=== PATIENT | male | born 1975 | race Caucasian/White ===

== ENCOUNTER 2016-12-26 18:01 | Observation (INO) | payer OTHER ==
[~2016-12-26] VITALS: Ht 170.2 cm; Wt 68.0 kg
[~2016-12-26 18:01] MED LIST: BUPR1FIL5 PO
[2016-12-26 18:49] LABS: ASPARTATE AMINO TRANSFERASE 28 U/L (15-37); BLOOD UREA NITROGEN 21 mg/dL (7-18)
[2016-12-26 18:51] LABS: ACETAMINOPHEN 8 mcg/mL (10-30)
[2016-12-26 20:49] LABS: DAU SCREEN DISCLAIMER
[2016-12-27] MEDS ORDERED: LORazepam 1MG TABLET PO ONE (01:00)
[2016-12-27] MEDS ORDERED: NICOTINE 21 MG/24 HR PATCH.TD24 TD ONE (01:00)
[2016-12-27] MEDS ORDERED: LORazepam 1MG TABLET ONE (01:40)
[2016-12-27] MEDS ORDERED: NICOTINE 21 MG/24 HR PATCH.TD24 ONE (01:40)
[2016-12-27] MEDS ORDERED: ONDANSETRON ODT 4 MG PO PRN (10:00)
[2016-12-27] MEDS ORDERED: TEMAZEPAM 15 MG CAPSULE PO PRN (10:00)
[2016-12-27] MEDS ORDERED: NICOTINE 21 MG/24 HR PATCH.TD24 TD SCH (10:00)
[2016-12-27] MEDS ORDERED: POLYETHYLENE GLYCOL 17 GM PACKET PO PRN (10:00)
[2016-12-27] MEDS ORDERED: HALOPERIDOL 5 MG TABLET PO PRN (10:00)
[2016-12-27] MEDS ORDERED: LORazepam 1MG TABLET PO PRN (10:00)
[2016-12-27] MEDS ORDERED: FLUO20CA19 PO (11:29)
[2016-12-27 11:30] VITALS: BP 130/81
[2016-12-27] MEDS: ACETAMINOPHEN 325 MG TABLET PO PRN (15:01)
[2016-12-27 19:36] VITALS: BP 142/92
[2016-12-28] MEDS: ACETAMINOPHEN 325 MG TABLET PO PRN (05:32)
[2016-12-28 06:04] LABS: BLOOD UREA NITROGEN 15 mg/dL (7-18)
[2016-12-28 07:44] VITALS: BP 114/74
[2016-12-28] MEDS ORDERED: BUPRENORPHINE/NALOXONE 8-2MG SL SCH (09:00)
== END 2016-12-28 08:56 ==
LOC: ED 18:43 → EDIP 12-27 07:09 → 3E 12-27 11:12
PROVIDERS: ATTEND Internal Medicine
DX: R45.851 Suicidal ideations (principal); F32.9 Major depressive disorder, single episode, unspecified; F17.210 Nicotine dependence, cigarettes, uncomplicated
CPT/HCPCS: 36415; 71010; 80048; 80053; 80307; 80329; 81003; 85025; 99285; G0378; G0480

== ENCOUNTER 2019-11-23 08:11 | Emergency (ER) | payer OTHER ==
[~2019-11-23] VITALS: Ht 175.3 cm; Wt 90.1 kg
[~2019-11-23 08:11] MED LIST changes: +FLUO20CA19 PO
--- NOTE | 2019-11-23 08:42 | NUR ---
PT STATES HE RECENTLY DRANK AND IS HAVING WITHDRAWAL SYMPTOMS. FATHER RECENTLY AND IS HAVING A HARD TIME COPING.
[2019-11-23 10:10] VITALS: BP 135/75
--- NOTE | 2019-11-23 10:11 | NUR ---
PT RESTING. STATED HE HAD A COUPLE SHOTS BEFORE COMING IN TO ED, LAST DRINK PRIOR WAS 4 DAYS AGO. VSS. LAB AT BEDSIDE
[2019-11-23 10:20] LABS: BASOPHILS # (AUTO) 0.04 x10^3/uL (0-0.1); BASOPHILS % (AUTO) 1 % (0-1); EOSINOPHILS # (AUTO) 0.23 x10^3/uL (0-0.4); EOSINOPHILS % (AUTO) 3 % (1-7); LYMPHOCYTES # (AUTO) 1.62 x10^3/uL (1-3.4); LYMPHOCYTES % (AUTO) 24 % (22-44); MD NO; MEAN CORPUSCULAR HEMOGLOBIN 31.9 pg (27.5-34.5); MEAN CORPUSCULAR HGB CONC 34.2 g/dL (33.2-36.2); MEAN CORPUSCULAR VOLUME 93.4 fL (81-97); MEAN PLATELET VOLUME 7.6 fL (7.4-10.4); MONOCYTES # (AUTO) 0.41 x10^3/uL (0.2-0.8); MONOCYTES % (AUTO) 6 % (2-9); NEUTROPHILS # (AUTO) 4.48 x10^3/uL (1.8-6.8); NEUTROPHILS % (AUTO) 66 % (42-75); PLATELET COUNT 232 x10^3/uL (130-400); RED BLOOD COUNT 5.11 x10^6/uL (4.38-5.82)
[2019-11-23 10:32] LABS: ALBUMIN 3.7 g/dL (3.4-5.0); ANION GAP 11 mmol/L (5-15); CALCIUM 8.3 mg/dL (8.5-10.1); CHLORIDE 106 mmol/L (98-107)
[2019-11-23 10:33] LABS: CREATININE 0.67 mg/dL (0.7-1.3)
--- NOTE | 2019-11-23 11:11 | NUR ---
Patient/Caregiver given discharge instructions and they have confirmed that they understand the instructions. Patient ambulatory with steady gait.
== END 2019-11-23 11:14 | disposition home or self-care (01) ==
LOC: ED 08:45
DX: F10.129 Alcohol abuse with intoxication, unspecified (principal); F17.200 Nicotine dependence, unspecified, uncomplicated; Y90.0 Blood alcohol level of less than 20 mg/100 ml
CPT/HCPCS: 36415; 80048; 80307; 82040; 83735; 85025; 99283